=== PATIENT | female | born 1950 | race Caucasian/White ===

== ENCOUNTER 2020-06-18 06:14 | Inpatient (IN) ==
[2020-06-18] MEDS ORDERED: CeFAZolin Syr 3,000MG/30 ML 3,000 MG/30 ML SYRINGE IVPB ONE (06:40)
[2020-06-18] MEDS ORDERED: Ringers Solution, Lactated 1,000 ML IVC SCH ×2 (06:45→10:29)
[2020-06-18] MEDS ORDERED: *HR* Midazolam HCl 2 MG/2 ML VIAL ONE (07:05)
[2020-06-18] MEDS ORDERED: *HR* FentaNYL (PF) 100 MCG/2 ML VIAL ONE (07:05)
[2020-06-18] MEDS ORDERED: Acetaminophen IV 1,000 MG/100 ML BAG IVPB ONE (07:05)
[2020-06-18] MEDS ORDERED: *HR* Propofol 200 MG/20 ML VIAL IVP ONE (07:05)
[2020-06-18] MEDS ORDERED: Vancomycin 1,000 MG VIAL ONE (07:23)
[2020-06-18] MEDS ORDERED: Ethanol\\Acetic Acid\\Na Ace\\Ben 1,000 ML IRRIG.SOLN IR ONE (07:23)
[2020-06-18] MEDS ORDERED: *HR* Meperidine 25 MG/ML SYRINGE IVP PRN (07:41)
[2020-06-18] MEDS ORDERED: *HR* OxyCODONE Immed Rel 5 MG TABLET PO PRN ×2 (07:41→10:29)
[2020-06-18] MEDS ORDERED: Ondansetron 4 MG/2 ML VIAL IVP ONE (07:41)
[2020-06-18] MEDS ORDERED: Lidocaine -MPF 2% 2 ML VIAL ONE (08:18)
[2020-06-18] MEDS ORDERED: *HR* Succinylcholine 200 MG/10 ML VIAL IVP ONE (08:18)
[2020-06-18] MEDS ORDERED: Dexamethasone 4 MG/ML VIAL ONE (08:18)
[2020-06-18] MEDS ORDERED: Ondansetron 4 MG/2 ML VIAL ONE (08:18)
[2020-06-18] MEDS: *HR* HYDROmorphone PF 0.5 MG/0.5 ML SYRINGE IVP PRN ×2 (09:29→09:40)
[2020-06-18 09:44] LABS: Hematocrit 34.9 % (35.3-44.9)
[2020-06-18 09:45] LABS: Hemoglobin 11.1 g/dL (11.5-15.4)
[2020-06-18] MEDS ORDERED: Ondansetron 4 MG/2 ML VIAL IVP PRN (10:29)
[2020-06-18] MEDS ORDERED: Sennosides 8.6 MG TABLET PO PRN (10:29)
[2020-06-18] MEDS ORDERED: MOM Conc 10 ML UD.LIQ PO PRN (10:29)
[2020-06-18] MEDS ORDERED: *HR* Promethazine 25 MG/ML VIAL IVP PRN (10:29)
[2020-06-18] MEDS ORDERED: HYDROcodone BIT/Homatropine 5 MG TABLET PO PRN (10:29)
[2020-06-18] MEDS ORDERED: D5% in Water 1,000 ML IVC PRN (10:29)
[2020-06-18] MEDS ORDERED: METRONIDAZOLE APPL TP SCH (10:29)
[2020-06-18] MEDS ORDERED: NON-FORMULARY MEDICATION 1 EACH EACH (Multivit-Min/Fa/Lycopen/Lutein [Centrum Silver Table PO SCH (10:29)
[2020-06-18] MEDS ORDERED: *HR* Dextrose 50 % in Water (Vial) 50 ML VIAL IVP PRN (10:29)
[2020-06-18] MEDS ORDERED: NON-FORMULARY MEDICATION 1 EACH EACH (Ezetimibe [Zetia] 10 MG) PO SCH (10:29)
[2020-06-18] MEDS ORDERED: Dextrose Gel 15 GM/37.5 ML TUBE PO PRN ×2 (10:29)
[2020-06-18] MEDS ORDERED: Naloxone 0.4 MG/ML INJ IVP PRN (10:29)
[2020-06-18] MEDS: *HR* Glimepiride 4 MG TABLET PO SCH ×2 (11:47→15:53)
[2020-06-18] MEDS: Bumetanide 1 MG TABLET PO SCH (11:48)
[2020-06-18] MEDS: carvediloL 6.25 MG TABLET PO SCH ×2 (11:49→15:52)
[2020-06-18] MEDS: hydroCHLOROthiazide 25 MG TABLET PO SCH (11:50)
[2020-06-18] MEDS: *HR* SitaGLIPtin 25 MG TABLET PO SCH (11:50)
[2020-06-18] MEDS: Magnesium Oxide 400 MG TABLET PO SCH (11:50)
[2020-06-18] MEDS: Cyanocobalamin (B-12) 1,000 MCG TABLET PO SCH (11:51)
[2020-06-18] MEDS: Multivit/Ca/Min/Fe/FA 1 TAB TABLET PO SCH (11:51)
[2020-06-18] MEDS: Ascorbic Acid 500 MG TABLET PO SCH ×2 (11:51→15:53)
[2020-06-18] MEDS: Cholecalciferol (D-3) 1,000 UNIT (25MCG) TABLET PO SCH (11:52)
[2020-06-18] MEDS: Insulin LISPRO 300 UNITS/3 ML VIAL SQ SCH ×2 (12:05→15:54)
[2020-06-18] MEDS: ceFAZolin 3,000 MG in 0.9 % Sodium Chloride 100 ML IVPB SCH (15:54)
[2020-06-18] MEDS ORDERED: ASCORBATE CALCIUM 1000 MG PO SCH (18:00)
[2020-06-18] MEDS ORDERED: Fenofibrate 54 MG TABLET PO SCH (18:00)
[2020-06-18] MEDS ORDERED: Insulin LISPRO 300 UNITS/3 ML VIAL SQ SCH (21:00)
[2020-06-18] MEDS ORDERED: amLODIPine 5 MG TABLET PO SCH (21:00)
[2020-06-19] MEDS: ceFAZolin 3,000 MG in 0.9 % Sodium Chloride 100 ML IVPB SCH (00:17)
[2020-06-19 05:49] LABS: Basophils % 0.2 %; Hematocrit 29.6 % (35.3-44.9); Hemoglobin 9.7 g/dL (11.5-15.4); Immature Granulocytes % 0.3 % (0-4); Lymphocytes # 1.3 K/mcL (0.6-4.6); Lymphocytes % 12.8 %; Mean Corpuscular HGB Conc 32.8 g/dL (31.6-35.5); Mean Corpuscular Hemoglobin 30.2 pg (28.0-33.3); Mean Corpuscular Volume 92.2 fL (83.0-100.0); Mean Platelet Volume 10.6 fL (9.4-12.4); Monocytes # 0.9 K/mcL (0.0-1.3); Monocytes % 9.4 %; Neutrophils # 7.8 K/mcL (1.6-8.9); Platelet Count 266 K/mcL (140-400); Red Blood Count 3.21 M/mcL (3.82-4.97); Red Cell Distribution Width 13.7 % (11.5-14.5); Segmented Neutrophils % 77.3 %; White Blood Count 10.1 K/mcL (4.3-11.1)
[2020-06-19 06:08] LABS: BUN/Creatinine Ratio 15 (6-26); Blood Urea Nitrogen 15 mg/dL (8-23); Calcium 9.1 mg/dL (8.6-10.3); Carbon Dioxide 29 mEq/L (23-29); Chloride 102 mEq/L (98-107); Glucose 161 mg/dL (70-105); Osmolality,Calculated 288 (280-300); Sodium 137 mEq/L (136-145); eGFR For African Americans > 60 (> 60); eGFR For Non-African Americans 56 (> 60)
[2020-06-19 07:31] VITALS: BP 135/73
[2020-06-19] MEDS: Aspirin Enteric Coated 81 MG Tablet PO SCH ×2 (08:45→09:08)
[2020-06-19] MEDS: *HR* Glimepiride 4 MG TABLET PO SCH (08:45)
[2020-06-19] MEDS: Ascorbic Acid 500 MG TABLET PO SCH (08:45)
[2020-06-19] MEDS: Magnesium Oxide 400 MG TABLET PO SCH (08:45)
[2020-06-19] MEDS: hydroCHLOROthiazide 25 MG TABLET PO SCH (08:45)
[2020-06-19] MEDS: carvediloL 6.25 MG TABLET PO SCH (08:48)
[2020-06-19] MEDS: Cholecalciferol (D-3) 1,000 UNIT (25MCG) TABLET PO SCH (08:48)
[2020-06-19] MEDS: Cyanocobalamin (B-12) 1,000 MCG TABLET PO SCH (08:48)
[2020-06-19] MEDS: Bumetanide 1 MG TABLET PO SCH (08:48)
[2020-06-19] MEDS: Multivit/Ca/Min/Fe/FA 1 TAB TABLET PO SCH (08:48)
[2020-06-19] MEDS: *HR* SitaGLIPtin 25 MG TABLET PO SCH (08:48)
[2020-06-19] MEDS: Insulin LISPRO 300 UNITS/3 ML VIAL SQ SCH (08:49)
== END 2020-06-19 10:35 | disposition home or self-care (01) | DRG 470 ==
LOC: SAMDAY 06:14 → 3NENU 10:27
PROVIDERS: ADMIT Orthopaedic Surgery; ATTEND Orthopaedic Surgery